=== PATIENT | male | born 1985 | race Caucasian/White ===

== ENCOUNTER → 2018-11-06 | Outpatient (CLI) | payer OTHER | LOC: CAT 14:15 | DX: Z13.6 Encounter for screening for cardiovascular disorders (principal) ==

== ENCOUNTER → 2018-11-16 | Outpatient (CLI) | payer OTHER ==
--- NOTE | 2018-11-16 15:15 | 2DMMODE ---
[facility] [address] [place] [address] 2 D/M-MODE ECHOCARDIOGRAM Name: BREE MILES Room #: REG Mary#: [id number] Admission: 11/16/18 Attend Phys: Viet Marx MD Discharge: Date of : 85 Date of Service: 11/16/18 1515 Report #: [id number] THIS REPORT FOR: //name// APPROVED REPORT Study performed: 11/16/2018 13:29:33 EXAM: Comprehensive 2D, Doppler, and color-flow Echocardiogram Patient Location: Out-Patient Room #: Echo lab 2 Status: routine BSA: 2.27 HR: 72 bpm BP: 148/80 mmHg Rhythm: NSR Other Information Study Quality: Good Indications Chest Pain Hypertension/HDD Family history 2D Dimensions RVDd: 32.72 mm IVSd: 9.63 (7-11mm) LVOT Diam: 20.42 (18-24mm) LVDd: 51.85 mm PWd: 10.32 (7-11mm) Ascending Ao: 25.06 (22-36mm) LVDs: 33.42 (25-40mm) Aortic Root: 27.26 mm IVC: 14.00 mm Volumes Left Atrial Volume (Systole) Single Plane 4CH: 50.88 mL Single Plane 2CH: 75.54 mL LA ESV Index: 30.00 mL/m2 Aortic Valve AoV Peak Geovany.: 1.59 m/s AO Peak Gr.: 10.07 mmHg LVOT Max P.92 mmHg LVOT Max V: 1.22 m/s MARCO ANTONIO Vmax: 2.51 cm2 Pulmonary Valve PV Peak Geovany.: 1.33 m/s PV Peak Gr.: 7.13 mmHg [facility] [address] [place] [address] 2 D/M-MODE ECHOCARDIOGRAM Name: BREE MILES Room #: REG [facility]#: [id number] Admission: 11/16/18 Attend Phys: Viet Marx MD Discharge: Date of : 85 Date of Service: 11/16/18 1515 Report #: [id number] Pulmonary Vein P Vein S: 0.54 m/s P Vein A: 0.28 m/s P Vein D: 0.49 m/s P Vein A Dur.: 101.5 msec P Vein S/D Ratio: 1.10 Left Ventricle The left ventricle is normal size. There is normal LV segmental wall motion. There is normal left ventricular wall thickness. Left ventricular systolic function is normal. The left ventricular ejection fraction is within the normal range. LVEF is 55-60%. The left ventricular diastolic function is normal. Right Ventricle The right ventricle is normal size. The right ventricular systolic function is normal. Atria The left atrium size is normal. The right atrium size is normal. Aortic Valve The aortic valve is normal in structure. No aortic regurgitation is present. There is no aortic valvular stenosis. Mitral Valve The mitral valve is normal in structure. There is no mitral valve regurgitation noted. No evidence of mitral valve stenosis. Tricuspid Valve The tricuspid valve is normal in structure. There is no tricuspid valve regurgitation noted. Pulmonic Valve The pulmonary valve is normal in structure. There is no pulmonic valvular regurgitation. Great Vessels The aortic root is normal in size. IVC is normal in size and collapses >50% with inspiration. Pericardium There is no pericardial effusion. [facility] [address] [place] [address] 2 D/M-MODE ECHOCARDIOGRAM Name: BREE MILES Room #: REG Christine.#: [id number] Admission: 11/16/18 Attend Phys: Viet Marx MD Discharge: Date of : 85 Date of Service: 11/16/18 1515 Report #: [id number] <Conclusion> The left ventricle is normal size. There is normal left ventricular wall thickness. Left ventricular systolic function is normal. The left ventricular diastolic function is normal. The right ventricle is normal size. The left atrium size is normal. The right atrium size is normal. The aortic valve is normal in structure. The mitral valve is normal in structure. There is no tricuspid valve regurgitation noted. <ELECTRONICALLY SIGNED> By: Viet Marx MD 11/16/18 1515 1515 1515 Viet Marx MD /DAYNA
--- NOTE | 2018-11-16 15:19 | EXE ---
[facility] [address] [employer] [address] STRESS ECHOCARDIOGRAM Name: BREE MILES Room #: REG RUBI Hernandez#: [id number] Admission: 11/16/18 Attend Phys: Viet Marx MD Discharge: Date of : 85 Date of Service: 11/16/18 1519 Report #: [id number] THIS REPORT FOR: //name// APPROVED REPORT Study performed: 11/16/2018 14:16:45 Exam: Stress Echocardiogram Indication: Chest pain , Hypertension Patient Location: Out-Patient Stress Nurse: Whitley Murillo RN Room #: Echo lab 2 Status: routine Ht: 5 ft 10 in HR: 72 bpm BP: 148/80 mmHg Rhythm: NSR Medical History Medical History: HTN Allergies: No known drug allergies Cardiac Risk Factors: HTN, FHX of CAD Exercise History: Indeterminate Procedure The patient underwent an Exercise Stress Test using the Eagle Protocol. Blood pressure, heart rate, and EKG were monitored. An Echocardiogram was performed by public works technician in four stages in quad fashion. At peak stress, four selected images were obtained and placed side by side with resting images for comparison. Stress Test Details Stress Test: Exercise stress testing was performed using a Eagle protocol. HR Resting HR: 72 bpm Max Heart Rate (APMHR): 187 bpm Max HR Achieved: 184 bpm Target HR (85% APMHR): 158 bpm % of APMHR: 98 Recovery HR: 103 bpm HR response to stress: Normal HR response to stress BP [facility] [address] [place] [address] STRESS ECHOCARDIOGRAM Name: BREE MILES Room #: REG [facility].#: [id number] Admission: 11/16/18 Attend Phys: Viet Marx MD Discharge: Date of : 85 Date of Service: 11/16/18 1519 Report #: [id number] Resting BP: 148/80 mmHg Max BP: 212/54 mmHg Recovery BP: 142/58 mmHg BP response to stress: Normal blood pressure response to stress. ECG Resting ECG: Sinus Rhythm Stress ECG: Sinus Rhythm, nonspecific ST-T abnormalities ST Change: Non-ischemic Clinical Reason for Termination: Maximal effort Exercise duration: 8 min 47 sec Highest Stage Achieved: Stage 3: 3.4 mph at 14% grade. Exercise capacity: 10.4 METs Overall Exercise Capacity for Age: Average Pre-Stress Echo The resting Echocardiogram showed normal left ventricular contractility with an estimated Ejection Fraction of about >55%. Normal wall motion in all segments on baseline images. Post-Stress Echo The stress Echocardiogram showed normal left ventricular contractility with an estimated Ejection Fraction of about >70%. Normal augmentation of wall motion in all segments on post stress images. Clinical Normal augmentation of myocardial wall segments using a 17 segment model. No clinical or ECG evidence for ischemia. Conclusion Clinical Response: Non-ischemic Exercise Capacity: Average Stress ECG Response: Non-ischemic Stress Echo Images: Non-ischemic The left ventricle is normal in size and wall thickness in both the rest and stress images. No prior study available for comparison. <Conclusion> The left ventricle is normal in size and wall thickness in both the rest and [facility] [address] [place] [address] STRESS ECHOCARDIOGRAM Name: BREE MILES Room #: REG Mary#: [id number] Admission: 11/16/18 Attend Phys: Viet Marx MD Discharge: Date of : 85 Date of Service: 11/16/18 1519 Report #: [id number] stress images. <ELECTRONICALLY SIGNED> By: Viet Marx MD 11/16/18 1519 18 18 Viet Marx MD /INF
== END ==
LOC: CV 10:26
DX: I10 Essential (primary) hypertension (principal); R07.89 Other chest pain; Z82.49 Family history of ischemic heart disease and other diseases of the circulatory system